=== PATIENT | female | born 1985 | race African-American/Black ===

== ENCOUNTER 2018-11-02 12:38 | Emergency (ER) | payer MEDICAID, OTHER ==
[~2018-11-02] VITALS: Ht 167.6 cm; Wt 90.7 kg
[~2018-11-02 12:38] MED LIST: CEPH500C PO
[2018-11-02 13:13] VITALS: BP_DIAS 70
[2018-11-02 13:17] LABS: BILIRUBIN,URINE NEGATIVE (NEG); CLARITY,URINE CLEAR; COLOR,URINE YELLOW; NITRITE,URINE NEGATIVE (NEG); PROTEIN,URINE NEGATIVE (NEG-TRACE)
--- NOTE | 2018-11-02 13:22 | PHYS DOC ---
Past Medical History Past Medical History: No Pertinent History Past Surgical History: No Surgical History Alcohol Use: None Drug Use: None Adult General Chief Complaint Chief Complaint: VAGINAL BLEEDING [facility] HPI Patient is a 33 year old female who presents with vaginal bleeding during . The patient is a with one prior elective . She presents to the ER today complaining of pelvic cramps and vaginal bleeding. Her symptoms started about 45 minutes prior to presentation. She describes an amount of blood equivalent to a normal period on the first day. She has otherwise been healthy lately. No fever or chills. No flank pain. No urinary symptoms. No vaginal discharge. Incidentally, she was evaluated on October 09 with a similar complaint. Ultrasound that time showed a viable intrauterine with a age of 9 weeks. Blood type was B+. Review of Systems Review of Systems Constitutional: Denies fever Eyes: Denies change in visual acuity HENT: Denies nasal congestion Respiratory: Denies cough or shortness of breath Cardiovascular: No additional information not addressed in HPI GI: Denies abdominal pain, nausea, vomiting : Denies dysuria Musculoskeletal: Denies back pain Integument: Denies rash Neurologic: Denies headache Endocrine: Denies polyuria or polydipsia All other systems were reviewed and found to be within normal limits, except as documented in this note. Allergies Allergies Allergies Coded Allergies Type Severity Reaction Last Updated Verified No Known Drug Allergies 10/09/18 No Physical Exam Physical Exam Constitutional: Well developed, well nourished, no acute distress HENT: Normocephalic, atraumatic, bilateral external ears normal, oropharynx moist Eyes: PERRLA, EOMI, conjunctiva normal Neck: Normal range of motion, no tenderness Cardiovascular:Heart rate regular rhythm, no murmur Lungs & Thorax: Bilateral breath sounds clear to auscultation Abdomen: Bowel sounds normal, soft, no tenderness Skin: Warm, dry, no erythema, no rash Extremities: No tenderness Neurologic: Alert and oriented X 3 Psychologic: Affect normal Pelvic: Normal female external genitalia. Vaginal mucosa is moist and uninflamed. The cervical os is visualized to be closed with a scant amount of red blood noted from the os during the exam. There is no cervical motion tenderness. There is no adnexal tenderness. Current Patient Data Vital Signs Vital Signs Date Time Temp Pulse Resp B/P (MAP) Pulse Ox O2 Delivery O2 Flow Rate FiO2 11/02/18 13:13 97.8 95 20 127/70 (89) 100 Room Air 97.8 Lab Values Laboratory Tests Test 11/02/18 13:00 11/02/18 13:06 11/02/18 13:20 Urine Collection Type Unknown Urine Color Yellow Urine Clarity Clear Urine pH 6.0 Urine Specific [place] 1.020 Urine Protein Negative mg/dL (NEG-TRACE) Urine Glucose (UA) Negative mg/dL (NEG) Urine Ketones (Stick) Negative mg/dL (NEG) Urine Blood Large (NEG) Urine Nitrite Negative (NEG) Urine Bilirubin Negative (NEG) Urine Urobilinogen Dipstick 1.0 mg/dL (0.2 mg/dL) Urine Leukocyte Esterase Trace (NEG) Urine RBC Tntc /HPF (0-2) Urine WBC 1-4 /HPF (0-4) Urine Squamous Epithelial Cells Few /LPF Urine Bacteria 0 /HPF (0-FEW) Urine Mucus Marked /LPF POC Urine HCG, Qualitative Hcg positive (Negative) White Blood Count 10.3 x10^3/uL (4.0-11.0) Red Blood Count 3.80 x10^6/uL (3.50-5.40) Hemoglobin 11.4 g/dL (12.0-15.5) L Hematocrit 32.5 % (36.0-47.0) L Mean Corpuscular Volume 86 fL (79-100) Mean Corpuscular Hemoglobin 30 pg (25-35) Mean Corpuscular Hemoglobin Concent 35 g/dL (31-37) Red Cell Distribution Width 13.5 % (11.5-14.5) Platelet Count 284 x10^3/uL (140-400) Neutrophils (%) (Auto) 79 % (31-73) H Lymphocytes (%) (Auto) 15 % (24-48) L Monocytes (%) (Auto) 5 % (0-9) Eosinophils (%) (Auto) 1 % (0-3) Basophils (%) (Auto) 1 % (0-3) Neutrophils # (Auto) 8.1 x10^3uL (1.8-7.7) H Lymphocytes # (Auto) 1.5 x10^3/uL (1.0-4.8) Monocytes # (Auto) 0.5 x10^3/uL (0.0-1.1) Eosinophils # (Auto) 0.1 x10^3/uL (0.0-0.7) Basophils # (Auto) 0.1 x10^3/uL (0.0-0.2) Maternal Serum HCG Beta Subunit [id number] mIU/mL (0-5) H Laboratory Tests 11/02/18 13:20 Microbiology 11/02/18 Wet Prep - Final, Complete EKG EKG [] Radiology/Procedures Radiology/Procedures Pelvic US: ransabdominal scans were obtained. There is a single intrauterine fetus in a variable position. The biparietal diameter measures 2 cm compatible with a gestational age of 13 weeks and 2 days. The crown-rump length of 5.9 cm suggests a gestational age of 12-13 weeks. The gestational age based on all the measurements is 13 weeks and 0 days yielding a sonographic EDC of 05/10/2019. This correlates well with the EDC of 05/13/2019 established on the previous ultrasound exam of 10/09/2018. activity and heart motion are present with a heart rate of 160 bpm. A normal amount of amniotic fluid is evident. There is no evidence of subchorionic hemorrhage. The developing placenta lies anteriorly. The cervical length is 3.1 cm. The maternal ovaries were not visualized. IMPRESSION: Single viable intrauterine fetus of 13 weeks gestational age as described above. Course & Med Decision Making Course & Med Decision Making Pertinent Labs and Imaging studies reviewed. (See chart for details) 13:15: Patient is seen and examined. No acute distress. Blood type on was B+. Will do pelvic and recheck quant HCG. Patient was evaluated in the emergency department for bleeding during . During her pelvic exam, there was a moderate amount of dark blood in the vault, but once the blood was removed, there was no acute bleeding actively from the cervix. Ultrasound was completed and documented above. The patient was B+. Ultrasound is reassuring. Patient was advised to follow-up with her primary collections agent in the next 3-5 days. Return to the ER for any worsening pain or jesús bleeding soaking more than 1 pad per hour for 3 consecutive hours. Patient was agreeable to the plan of care. All of her questions were answered prior to discharge home. Dragon Disclaimer Dragon Disclaimer This electronic medical record was generated, in whole or in part, using a voice recognition dictation system. Departure Departure Disposition: 01 HOME, SELF-CARE Condition: GOOD Referrals: NO PCP (PCP) PERRI MURILLO DO Nov 02, 2018 13:22
[2018-11-02 13:33] LABS: BASO # 0.1 x10^3/uL (0.0-0.2); BASO % 1 % (0-3); EOS # 0.1 x10^3/uL (0.0-0.7); EOS % 1 % (0-3); HEMATOCRIT 32.5 % (36.0-47.0); HEMOGLOBIN 11.4 g/dL (12.0-15.5); LYMPH # 1.5 x10^3/uL (1.0-4.8); LYMPH % 15 % (24-48); MEAN CORPUSCULAR HEMOGLOBIN 30 pg (25-35); MEAN CORPUSCULAR HGB CONC 35 g/dL (31-37); MEAN CORPUSCULAR VOLUME 86 fL (79-100); MONO # 0.5 x10^3/uL (0.0-1.1); MONO % 5 % (0-9); NEUT # 8.1 x10^3uL (1.8-7.7); NEUT % 79 % (31-73); PLATELET COUNT 284 x10^3/uL (140-400); RED CELL DISTRIBUTION WIDTH 13.5 % (11.5-14.5); WHITE BLOOD COUNT 10.3 x10^3/uL (4.0-11.0)
[2018-11-02 13:41] LABS: BACTERIA,URINE 0 /HPF (0-FEW); RBC,URINE TNTC /HPF (0-2); SQUAMOUS EPITHELIAL CELL,UR FEW /LPF
--- NOTE | 2018-11-02 15:54 | RAD ---
Obstetrical ultrasound, 11/02/2018: HISTORY: , with bleeding and cramping Transabdominal scans were obtained. There is a single intrauterine fetus in a variable position. The biparietal diameter measures 2 cm compatible with a gestational age of 13 weeks and 2 days. The crown-rump length of 5.9 cm suggests a gestational age of 12-13 weeks. The gestational age based on all the measurements is 13 weeks and 0 days yielding a sonographic EDC of 05/10/2019. This correlates well with the EDC of 05/13/2019 established on the previous ultrasound exam of 10/09/2018. activity and heart motion are present with a heart rate of 160 bpm. A normal amount of amniotic fluid is evident. There is no evidence of subchorionic hemorrhage. The developing placenta lies anteriorly. The cervical length is 3.1 cm. The maternal ovaries were not visualized. IMPRESSION: Single viable intrauterine fetus of 13 weeks gestational age as described above. Electronically signed by: Pietro Martinez MD (11/02/2018 3:50 PM) [facility]
[2018-11-02 16:39] VITALS: BP_SYST 70
[2018-11-04 13:16] LABS: GC PROBE Negative (Negative)
== END 2018-11-02 16:40 | disposition home or self-care (01) ==
LOC: ER 12:38
DX: O46.91 Antepartum hemorrhage, unspecified, first trimester (principal); R10.2 Pelvic and perineal pain; Z3A.13 13 weeks gestation of pregnancy
CPT/HCPCS: 36415; 76801; 76817; 81001; 81025; 84702; 85025; 87491; 87591; 99284; Q0111

== ENCOUNTER 2019-02-04 02:17 | Observation (INO) | payer OTHER ==
[2019-02-04] MEDS ORDERED: IV RINGERS,LACTATED 1000ML 1,000 ML IV SCH (02:30)
[2019-02-04 02:55] LABS: BILIRUBIN,URINE NEGATIVE (NEG); CLARITY,URINE CLEAR; COLOR,URINE YELLOW; NITRITE,URINE NEGATIVE (NEG); PROTEIN,URINE NEGATIVE (NEG-TRACE)
[2019-02-04 03:01] LABS: AMNIO PT POSITIVE
[2019-02-04 03:02] LABS: BARBITURATES NEG (NEG); BENZODIAZEPINES NEG (NEG); CANNABINOIDS POS (NEG); COCAINE NEG (NEG); METHADONE NEG (NEG); OPIATES NEG (NEG); PHENCYCLIDINE NEG (NEG)
[2019-02-04 03:07] LABS: BACTERIA,URINE 0 /HPF (0-FEW); RBC,URINE 0 /HPF (0-2)
[2019-02-04 03:08] LABS: SQUAMOUS EPITHELIAL CELL,UR FEW /LPF
[2019-02-04 03:10] LABS: AMPHETAMINE/METHAMPHETAMINE NEG (NEG)
[2019-02-04] MEDS ORDERED: MAGNESIUM SULFATE 4GM 100 ML IV ONE (03:30)
[2019-02-04] MEDS ORDERED: BETAMET ACET&NA PHOS 30 MG/5 ML VIAL. IM SCH (03:30)
[2019-02-04] MEDS ORDERED: AMPICILLIN SODIUM 2 GM in IV NORMAL SALINE 100ML 100 ML IV ONE (03:30)
[2019-02-04] MEDS ORDERED: MAGNESIUM SULFATE 20GM 500 ML IV SCH (03:30)
[2019-02-04 03:37] LABS: BASO % 0 % (0-3); EOS # 0.1 x10^3/uL (0.0-0.7); EOS % 1 % (0-3); HEMATOCRIT 29.7 % (36.0-47.0); LYMPH # 1.9 x10^3/uL (1.0-4.8); LYMPH % 14 % (24-48); MEAN CORPUSCULAR HEMOGLOBIN 29 pg (25-35); MEAN CORPUSCULAR HGB CONC 34 g/dL (31-37); MEAN CORPUSCULAR VOLUME 86 fL (79-100); MONO # 0.8 x10^3/uL (0.0-1.1); MONO % 6 % (0-9); NEUT # 11.2 x10^3uL (1.8-7.7); NEUT % 79 % (31-73); PLATELET COUNT 234 x10^3/uL (140-400); RED BLOOD COUNT 3.48 x10^6/uL (3.50-5.40); RED CELL DISTRIBUTION WIDTH 13.6 % (11.5-14.5); WHITE BLOOD COUNT 14.2 x10^3/uL (4.0-11.0)
[2019-02-04 03:46] LABS: ALBUMIN 2.6 g/dL (3.4-5.0); ALBUMIN/GLOBULIN RATIO 0.7 (1.0-1.7); CALCIUM 8.3 mg/dL (8.5-10.1); CREATININE 0.5 mg/dL (0.6-1.0); GFR 174.1; POTASSIUM 3.7 mmol/L (3.5-5.1); TOTAL BILIRUBIN 0.4 mg/dL (0.2-1.0); TOTAL PROTEIN 6.5 g/dL (6.4-8.2)
[2019-02-04] MEDS ORDERED: ERYTHROMYCIN BASE 250 MG TABLET PO SCH (04:00)
--- NOTE | 2019-02-04 05:40 | RAD ---
OB ultrasound limited HISTORY: Premature rupture membranes Sonographic examination appearance was performed which has developed technique and multiple static images were obtained. There is a single live intrauterine the heartbeat is confirmed at 145 beats for minute. Visualization of structures is limited by the advanced facial age. The spine heart and cord insertion appear normal. There is an anterior placenta. There is a breech position. The maternal cervix measures 5.7 cm and there is some funneling at the internal os. The amniotic fluid index is 6.7 cm. LMP of 08/06/2019 corresponds with a 26 weeks 0 day gestational age and estimated date confinement of May 13, 2019. Size by ultrasound is also 26 weeks 0 days. Estimated weight is 1 lb. 14 oz. +/- 4 ounces estimated weight percentile is 42 percent. The measurements are as follows: [facility] 26 weeks 0 days Head circumference 24 cm 26 weeks 4 days Abdominal discomfort 21 cm 25 weeks 4 days Femur length 4.7 cm 25 weeks 5 days IMPRESSION: 1. Single live intrauterine has appropriate size by ultrasound. 2. Funneling of the cervix at the internal os. 3. A short-term follow-up ultrasound could be performed if clinically indicated. Electronically signed by: Kareem Troncoso III, MD (02/04/2019 5:37 AM) [id number]
--- NOTE | 2019-02-04 05:53 | PDOC1 ---
OB - History Hx of Present Care: Good Care Ultrasounds: Normal mid trimester US, Other (JT 6) Obstetrical Complications: Other (PPROM) Medical Complications: None Other Concerns: Previous Section for persistent OP Past Family/Social History * Past Medical, Surgical, Family and Obstetric Histories reviewed from chart. Blood Type: Unknown Rubella: Unknown RPR/VDRL: Unknown GBS Status: Unknown HBsAG: Unknown OB - Chief Complaint & HPI Date of Admission: Date of Admission: Feb 04, 2019 at 02:17 Chief Complaint/History : 2 Para: 1 EDC: Feb 11, 2019 EGA: 26 weeks Reason for admission: IUP - , rupture of membranes Admission Nurse Assessment Rev: Yes OB - Admission Exam Physical Exam HEENT: Normal, Nasal Mucosa Normal, Oropharynx Normal, Moist Membranes, Fontanelles Normal Heart: Regular Rate Lungs: Clear, Equal Abdomen: Gravid Extremities: Normal Pulses, No tenderness or swelling Reflexes: Normal Membranes: Ruptured Amniotic Fluid: Clear Heart Rate: Normal Accelerations: Accelerations Present Decelerations: No decelerations Short Term Variability: Present Assessment/Plan Assessment/Plan 26 week IUP Breech PPROM Previous Section 2012 Plan: Admit/Transfer Neuro prophylaxis Amp/[place] Steroids Labs CBC - BMP 02/04/19 03:20 MISSY SUAREZ MD Feb 04, 2019 05:52
== END 2019-02-04 06:35 | disposition short-term general hospital (02) ==
LOC: 3 SO LND 02:17
PROVIDERS: ADMIT Specialist; ATTEND Specialist
DX: O42.912 Preterm premature rupture of membranes, unspecified as to length of time between rupture and onset of labor, second trimester (principal); O34.219 Maternal care for unspecified type scar from previous cesarean delivery; Z3A.26 26 weeks gestation of pregnancy
CPT/HCPCS: 36415; 76815; 80053; 80307; 81001; 84112; 85025; 86592; 86762; 86850; 86900; 86901; 87653; 96365; 96366; 96368; 96372; G0378; G0379; J0696; J0702; J3475; J7120

== ENCOUNTER 2020-06-28 16:14 | Emergency (ER) | payer MEDICAID, OTHER ==
[~2020-06-28] VITALS: Ht 170.2 cm; Wt 92.8 kg
[2020-06-28 16:20] VITALS: BP 117/62
[2020-06-28 16:51] LABS: BILIRUBIN,URINE NEGATIVE (NEG); CLARITY,URINE CLEAR; COLOR,URINE YELLOW; NITRITE,URINE NEGATIVE (NEG); PROTEIN,URINE NEGATIVE (NEG-TRACE); UROBILINOGEN,URINE 0.2 mg/dL (0.2 mg/dL)
[2020-06-28 16:56] LABS: BACTERIA,URINE FEW /HPF (0-FEW); RBC,URINE 0 /HPF (0-2); SQUAMOUS EPITHELIAL CELL,UR FEW /LPF
--- NOTE | 2020-06-28 17:29 | PHYS DOC ---
Past Medical History Past Medical History: No Pertinent History (FLY SUERO APRN) Past Surgical History: (FLY SUERO APRN) Smoking Status: Never Smoker Alcohol Use: Occasionally Drug Use: None (FLY SUERO APRN) General Adult EDM: Chief Complaint: VAGINAL BLEEDING HPI: HPI: Patient is a 34 year old female who presents the ED today complaining of irregular periods since 2019 when she had a baby. Patient states today she was at work and her boss asked her to come to be evaluated in the emergency room and be given a note for work as well as a couple days off. Patient reports she is currently on her menstrual cycle but she is barely bleeding. She states sometimes she bleeds heavy sometimes she bleeds light. She reports intermittent mild abdominal cramping. She states her main concern today is a work note. (FLY SUERO APRN) Review of Systems: Review of Systems: Constitutional: Denies fever or chills. [] Eyes: Denies change in visual acuity. [] HENT: Denies nasal congestion or sore throat. [] Respiratory: Denies cough or shortness of breath. [] Cardiovascular: Denies chest pain or edema. [] GI: Reports vaginal bleeding. Denies abdominal pain, nausea, vomiting, bloody stools or diarrhea. [] : Denies dysuria. [] Musculoskeletal: Denies back pain or joint pain. [] Integument: Denies rash. [] Neurologic: Denies headache, focal weakness or sensory changes. [] Endocrine: Denies polyuria or polydipsia. [] Lymphatic: Denies swollen glands. [] Psychiatric: Denies depression or anxiety. [] (FLY SUERO APRN) Heart Score: Risk Factors: Risk Factors: DM, Current or recent (<one month) smoker, HTN, HLP, family history of CAD, obesity. Risk Scores: Score 0 - 3: 2.5% MACE over next 6 weeks - Discharge Home Score 4 - 6: 20.3% MACE over next 6 weeks - Admit for Clinical Observation Score 7 - 10: 72.7% MACE over next 6 weeks - Early Invasive Strategies (FLY SUERO APRN) Allergies: Allergies: Allergies Coded Allergies Type Severity Reaction Last Updated Verified No Known Drug Allergies 10/09/18 No (FLY SUERO APRN) Physical Exam: PE: Constitutional: Well developed, well nourished, no acute distress, non-toxic appearance. [] HENT: Normocephalic, atraumatic, bilateral external ears normal, oropharynx moist, no oral exudates, nose normal. [] Eyes: PERRLA, EOMI, conjunctiva normal, no discharge. [] Neck: Normal range of motion, no tenderness, supple, no stridor. [] Cardiovascular:Heart rate regular rhythm, no murmur [] Lungs & Thorax: Bilateral breath sounds clear to auscultation [] Abdomen: Bowel sounds normal, soft, no tenderness, no masses, no pulsatile masses. [] Skin: Warm, dry, no erythema, no rash. [] Back: No tenderness, no CVA tenderness. [] Extremities: No tenderness, no cyanosis, no clubbing, ROM intact, no edema. [] Neurologic: Alert and oriented X 3, normal motor function, normal sensory function, no focal deficits noted. [] Psychologic: Affect normal, judgement normal, mood normal. [] (FLY SUERO APRN) Current Patient Data: Labs: Laboratory Tests Test 06/28/20 16:20 06/28/20 16:29 Urine Collection Type Unknown Urine Color Yellow Urine Clarity Clear Urine pH 7.0 (<5.0-8.0) Urine Specific [place] <=1.005 (1.000-1.030) Urine Protein Negative mg/dL (NEG-TRACE) Urine Glucose (UA) Negative mg/dL (NEG) Urine Ketones (Stick) Negative mg/dL (NEG) Urine Blood Small (NEG) Urine Nitrite Negative (NEG) Urine Bilirubin Negative (NEG) Urine Urobilinogen Dipstick 0.2 mg/dL (0.2 mg/dL) Urine Leukocyte Esterase Small (NEG) Urine RBC 0 /HPF (0-2) Urine WBC 1-4 /HPF (0-4) Urine Squamous Epithelial Cells Few /LPF Urine Bacteria Few /HPF (0-FEW) POC Urine HCG, Qualitative Hcg negative (Negative) Vital Signs: Vital Signs Date Time Temp Pulse Resp B/P (MAP) Pulse Ox O2 Delivery O2 Flow Rate FiO2 06/28/20 16:20 98.5 99 18 117/62 (80) 96 Room Air 98.5 (FLY SUERO APRN) EKG: EKG: [] (FLY SUERO APRN) Radiology/Procedures: Radiology/Procedures: [] (FLY SUERO APRN) Course & Med Decision Making: Course & Med Decision Making Pertinent Labs and Imaging studies reviewed. (See chart for details) This is a 34-year-old female patient presenting to the ED today complaining of vaginal bleeding that is irregular since 2019 when she had a baby. Patient is also requesting a note for work, see HPI. Urine positive for UTI, discharged on Bactrim. Provided note for work. Provided OB for follow-up. (FLY SUERO APRN) Dragon Disclaimer: Dragon Disclaimer: This electronic medical record was generated, in whole or in part, using a voice recognition dictation system. (FLY SUERO APRN) Departure Departure Impression: Primary Impression: Dysfunctional uterine bleeding Additional Impression: UTI (urinary tract infection) Qualified Codes: N39.0 - Urinary tract infection, site not specified Disposition: HOME, SELF-CARE Condition: STABLE Referrals: NO PCP (PCP) CASSANDRA MILLIGAN Jr, MD follow up in 1-2 weeks Patient Instructions: Urinary Tract Infection, Uterine Bleeding, Dysfunctional Additional Instructions: Your urine was noted for small amount of infection. We put you on antibiotic. Ensure you complete them. Please follow-up with the provided [facility] [facility] as soon as possible. Scripts Sulfamethoxazole/Trimethoprim (BACTRIM 400-80 MG TABLET) 1 Each Tablet 1 TAB PO BID for 3 Days, #6 TAB 0 Refills Prov: NIMOFLY HOWARD 06/28/20 Justicifation of Admission Dx: Justifications for Admission: Justification of Admission Dx: N/A (FLY SUERO APRN) Attending Signature Attending Signature I have reviewed the PA/COMMUNITY CENTER COORDINATOR's note and plan of care. I was available for consultation as needed at all times during the patient's visit in the emergency department. I agree with the clinical impression, plan and disposition. (BA GONZALEZ DO) FLY SUERO APRN Jun 28, 2020 17:29 BA GONZALEZ DO Jun 29, 2020 09:44
[2020-06-28] MEDS ORDERED: SULF1TAB23 PO (17:31)
== END 2020-06-28 18:05 | disposition home or self-care (01) ==
LOC: ER 16:14
DX: N39.0 Urinary tract infection, site not specified (principal); N93.8 Other specified abnormal uterine and vaginal bleeding; R10.30 Lower abdominal pain, unspecified; Z98.890 Other specified postprocedural states
CPT/HCPCS: 81001; 81025; 99283